=== PATIENT | male | born 1990 | race Caucasian/White ===

== ENCOUNTER 2018-12-13 00:29 | Emergency (ER) | payer SELFPAY ==
[~2018-12-13] VITALS: Ht 180.3 cm; Wt 106.6 kg
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
[2018-12-13] MEDS ORDERED: ONDANSETRON PF 4 MG/2 ML VIAL. ONE (00:55)
[2018-12-13] MEDS ORDERED: IV NORMAL SALINE 1000ML BAG 1,000 ML IV ONE (01:00)
[2018-12-13] MEDS ORDERED: ONDANSETRON PF 4 MG/2 ML VIAL. IV ONE (01:00)
[2018-12-13 01:02] LABS: BASO # 0.1 x10^3/uL (0.0-0.2); BASO % 1 % (0-3); EOS # 0.1 x10^3/uL (0.0-0.7); EOS % 1 % (0-3); HEMATOCRIT 44.3 % (39.0-53.0); HEMOGLOBIN 15.4 g/dL (13.0-17.5); LYMPH % 38 % (24-48); MEAN CORPUSCULAR HEMOGLOBIN 28 pg (25-35); MEAN CORPUSCULAR HGB CONC 35 g/dL (31-37); MEAN CORPUSCULAR VOLUME 81 fL (79-100); MONO # 0.6 x10^3/uL (0.0-1.1); MONO % 5 % (0-9); NEUT # 5.9 x10^3/uL (1.8-7.7); NEUT % 56 % (31-73); PLATELET COUNT 210 x10^3/uL (140-400); RED BLOOD COUNT 5.46 x10^6/uL (4.30-5.70); RED CELL DISTRIBUTION WIDTH 13.9 % (11.5-14.5); WHITE BLOOD COUNT 10.5 x10^3/uL (4.0-11.0)
[2018-12-13 01:14] LABS: CALCIUM 8.6 mg/dL (8.5-10.1); CREATININE 1.1 mg/dL (0.7-1.3); GFR 80.9; POTASSIUM 3.3 mmol/L (3.5-5.1)
[2018-12-13 01:19] LABS: ALBUMIN 4.2 g/dL (3.4-5.0); ALBUMIN/GLOBULIN RATIO 1.1 (1.0-1.7); TOTAL BILIRUBIN 0.2 mg/dL (0.2-1.0); TOTAL PROTEIN 8.2 g/dL (6.4-8.2)
[2018-12-13 01:56] VITALS: BP 132/81
--- NOTE | 2018-12-13 02:02 | RAD ---
CT head without contrast: Reason for examination: Elevated blood pressure of 220 with altered mental status. Axial images were obtained through the brain. No contrast was administered. Exposure: One or more of the following individualized dose reduction techniques were utilized for this examination: 1. Automated exposure control 2. Adjustment of the mA and/or kV according to patient size 3. Use of iterative reconstruction technique. Ventricular systems are symmetric and not abnormally dilated. There is a cavum septum lucidum present. No midline shift is present. There is no evidence of intracranial hemorrhage, infarct, mass or edema. No abnormalities are seen at the orbits. There is some focal mucosal disease in the right maxillary antrum. Remaining paranasal sinuses and mastoid air cells are clear. No acute abnormality seen in the skull. IMPRESSION: Focal mucosal disease in the right maxillary antrum. No acute intracranial abnormality evident. Electronically signed by: Elsa Garrido MD (12/13/2018 1:59 AM) [facility]
--- NOTE | 2018-12-13 10:28 | EKG ---
[facility] [address] [place] [id number] Test Date: 2018-12-13 Test Time: 00:48:38 Pat Name: CASEY EDEN Department: Room: Gender: M Machine Maintenance Repairer: : 1990 Requested By: OTILIA BELTRÁN Order Number: [id number] Reading MD: Jared Tyson MD Measurements Intervals [place] Rate: 102 P: 29 NE: 156 QRS: 45 QRSD: 100 T: 13 QT: 342 QTc: 450 Interpretive Statements SINUS TACHYCARDIA Electronically Signed On 12-14-2018 18:17:02 CDT by Jared Tyson MD
== END 2018-12-13 02:10 | disposition home or self-care (01) ==
LOC: ER 00:29
DX: F10.129 Alcohol abuse with intoxication, unspecified (principal); Y90.7 Blood alcohol level of 200-239 mg/100 ml; R11.0 Nausea; R41.82 Altered mental status, unspecified
CPT/HCPCS: 36415; 70450; 80053; 85025; 93005; 96361; 96374; 99285; G0480; J2405; J7030